=== PATIENT | female | born 1990 | race Caucasian/White ===

== ENCOUNTER 2023-12-03 10:52 | Emergency (ER) | payer OTHER ==
[~2023-12-03] VITALS: Ht 154.9 cm; Wt 49.4 kg
[2023-12-03 11:33] LABS: BASOPHILS % (AUTO) 0.4 % (0.0-2.0); EOSINOPHILS # (AUTO) 0.1 K/uL (0.0-0.7); EOSINOPHILS % (AUTO) 1.5 % (0.0-7.0); HEMATOCRIT 39.6 % (31.2-41.9); HEMOGLOBIN 13.4 g/dL (10.9-14.3); LYMPHOCYTES # (AUTO) 1.2 K/uL (0.8-4.8); LYMPHOCYTES % (AUTO) 16.6 % (20.5-51.5); MEAN CORPUSCULAR HEMOGLOBIN 33.1 uug (24.7-32.8); MEAN CORPUSCULAR HGB CONC 34 g/dL (32.3-35.6); MEAN CORPUSCULAR VOLUME 97.5 fL (75.5-95.3); MONOCYTES # (AUTO) 0.5 K/uL (0.1-1.30); MONOCYTES % (AUTO) 7.5 % (0.0-11.0); NEUTROPHILS # (AUTO) 5.2 K/uL (1.8-8.9); PLATELET COUNT (AUTO) 219 K/uL (179-408); RED BLOOD CELL COUNT(AUTO) 4.06 MIL/uL (3.63-4.92); RED CELL DISTRIBUTION WIDTH 13.8 % (12.3-17.7); WHITE BLOOD COUNT (AUTO) 7.1 K/uL (3.8-11.8)
[2023-12-03 11:44] LABS: *BILIRUBIN,URIN NEGATIVE (NEGATIVE); *CLARITY,URINE CLEAR (CLEAR); *COLOR,URINE YELLOW (YELLOW); *KETONES,URINE NEGATIVE (NEGATIVE); *PROTEIN,URINE TRACE (NEGATIVE); *UROBILINOGEN,URINE 0.2 E.U./dl (NORMAL); LEUKOCYTE ESTERASE ,URINE NEGATIVE (NEGATIVE); NITRITE, URINE NEGATIVE (NEGATIVE); PH,URINE 5.5 (5.0-8.0); UGLUCOSE NEGATIVE (NEGATIVE)
[2023-12-03] MEDS: IV NS 1000 ML 1,000 ML IV ONE (11:46)
[2023-12-03 11:48] LABS: *BLOOD, URINE TRACE (NEGATIVE)
[2023-12-03] MEDS ORDERED: ONDANSETRON 4 MG/2 ML VIAL ONE (11:48)
[2023-12-03] MEDS ORDERED: LIDOCAINE VISCUS 2% 15 ML UDC ONE (11:48)
[2023-12-03] MEDS ORDERED: FAMOTIDINE. 20 MG/2 ML VIAL IV ONE (11:48)
[2023-12-03] MEDS ORDERED: DICYCLOMINE HCL LIQ 10 MG/5 ML UDC ONE (11:49)
[2023-12-03] MEDS: FAMOTIDINE. 20 MG/2 ML VIAL IV ONE (11:49)
[2023-12-03] MEDS: LIDOCAINE VISCUS 2% 15 ML UDC MM ONE (11:50)
[2023-12-03] MEDS: ONDANSETRON 4 MG/2 ML VIAL IV ONE (11:50)
[2023-12-03] MEDS: DICYCLOMINE HCL LIQ 10 MG/5 ML UDC PO ONE (11:50)
[2023-12-03 11:51] LABS: *URINE HCG, QUAL NEGATIVE (NEGATIVE)
[2023-12-03 11:54] LABS: BACTERIA,URINE MODERATE /HPF (NONE SEEN); RBC,URINE 0-3 /HPF (0-3); SQUAMOUS EPITHELIAL CELL,UR MANY /HPF (NONE SEEN); WBC,URINE 0-3 /HPF (0-3)
[2023-12-03 12:08] LABS: DIFFERENTIAL COMMENT 1
[2023-12-03 12:15] LABS: ALBUMIN 4.1 g/dL (3.4-5.0); BILIRUBIN,DIRECT 0.1 mg/dL (0.0-0.2); BILIRUBIN,TOTAL 0.3 mg/dL (0.2-1.0); CALCIUM 8.6 mg/dL (8.5-10.1); POTASSIUM 3.1 mmol/L (3.5-5.1); TOTAL PROTEIN, SERUM 7.9 g/dL (6.4-8.2)
[2023-12-03] MEDS ORDERED: POTASSIUM CHLORIDE 20 MEQ TAB.PRT.SR ONE (13:00)
[2023-12-03] MEDS: MAGNESIUM SULFATE/D5W 100 ML IV SCH (13:00)
[2023-12-03] MEDS: POTASSIUM CHLORIDE 20 MEQ TAB.PRT.SR PO ONE (13:30)
[2023-12-03] MEDS ORDERED: ONDA4TAB11 PO (14:38)
[2023-12-03 15:13] VITALS: BP 104/76; TEMP 97.8; O2SAT 100
== END 2023-12-03 14:50 | disposition home or self-care (01) ==
LOC: ER 10:52
DX: E03.9 Hypothyroidism, unspecified (principal); R10.13 Epigastric pain; R11.2 Nausea with vomiting, unspecified; R19.7 Diarrhea, unspecified; R10.2 Pelvic and perineal pain
CPT/HCPCS: 99285; 96365; 96375; 96361; 80076; 80048; 81001; 84703; 84439; 83690; 84443 ×2; 85025; 36415; J3490; J2405; J7040; A4606; A4663

== ENCOUNTER 2024-07-21 10:58 | Emergency (ER) | payer OTHER ==
[~2024-07-21] VITALS: Ht 154.9 cm; Wt 47.6 kg
[~2024-07-21 10:58] MED LIST: ONDA4TAB11 PO
[2024-07-21 11:48] LABS: BASOPHILS % (AUTO) 0.5 % (0.0-2.0); EOSINOPHILS % (AUTO) 0.5 % (0.0-7.0); HEMATOCRIT 40.4 % (31.2-41.9); HEMOGLOBIN 13.7 g/dL (10.9-14.3); LYMPHOCYTES # (AUTO) 0.8 K/uL (0.8-4.8); LYMPHOCYTES % (AUTO) 9.8 % (20.5-51.5); MEAN CORPUSCULAR HEMOGLOBIN 32.8 uug (24.7-32.8); MEAN CORPUSCULAR HGB CONC 34 g/dL (32.3-35.6); MEAN CORPUSCULAR VOLUME 96.3 fL (75.5-95.3); MONOCYTES # (AUTO) 0.9 K/uL (0.1-1.30); MONOCYTES % (AUTO) 12.2 % (0.0-11.0); PLATELET COUNT (AUTO) 185 K/uL (179-408); RED BLOOD CELL COUNT(AUTO) 4.19 MIL/uL (3.63-4.92); RED CELL DISTRIBUTION WIDTH 12.7 % (12.3-17.7); WHITE BLOOD COUNT (AUTO) 7.7 K/uL (3.8-11.8)
[2024-07-21 11:59] LABS: DIFFERENTIAL COMMENT 1
[2024-07-21] MEDS ORDERED: CYANOCOBALAMIN 1000 MCG/ML VIAL ONE (14:25)
[2024-07-21] MEDS: CYANOCOBALAMIN 1000 MCG/ML VIAL IM ONE (14:36)
[2024-07-21 14:57] VITALS: BP 116/70; O2SAT 99
== END 2024-07-21 14:59 | disposition home or self-care (01) ==
LOC: ER 10:58
DX: E53.8 Deficiency of other specified B group vitamins (principal); J02.9 Acute pharyngitis, unspecified; E03.9 Hypothyroidism, unspecified; Z79.899 Other long term (current) drug therapy
CPT/HCPCS: 99283; 82607; 84443; 85025; 36415; 96372; J3420; A4606; A4663